=== PATIENT | male | born 1935 | race Caucasian/White ===

== ENCOUNTER → 2016-11-29 | Outpatient (CLI) | payer MEDICARE ==
--- NOTE | 2016-11-29 18:37 | PCVCIMAG ---
EXAM: BILATERAL SUPERFICIAL VENOUS DUPLEX INDICATION: Leg pain and swelling. FINDINGS: Right leg: No thrombus in the common femoral, main femoral, or popliteal veins. These veins are compressible. Right Great Saphenous Vein: At the saphenofemoral junction the diameter is 7.1 mm, in the mid thigh it is 4.3 mm, and in the calf it is 4.4 mm. There is not significant venous insufficiency/reflux throughout. Venous insufficiency/reflux duration is 0.4 seconds. Right Small Saphenous Vein: At the saphenopopliteal junction the diameter is 5.1 mm, and in the calf it is 3.3 mm. There is not significant venous insufficiency/reflux throughout. Venous insufficiency/reflux duration is 0.4 seconds. There is a cranial extension present. Left leg: No thrombus in the common femoral, main femoral, or popliteal veins. These veins are compressible. Left Great Saphenous Vein: At the saphenofemoral junction the diameter is 7.5 mm, in the mid thigh it is 6.0 mm, and in the calf it is 6.6 mm. There is significant venous insufficiency/reflux throughout. Venous insufficiency/reflux duration is 12.0 seconds. Left Small Saphenous Vein: At the saphenopopliteal junction the diameter is 3.2 mm, and in the calf it is 2.8 mm. There is not significant venous insufficiency/reflux throughout. Venous insufficiency/reflux duration is 0.3 seconds. There is a cranial extension present. IMPRESSION: Right Great Saphenous Vein: No significant venous insufficiency/reflux is present as noted above. Right Small Saphenous Vein: No significant venous insufficiency/reflux is present as noted above. Left Great Saphenous Vein: Significant venous insufficiency/reflux is present as noted above. Left Small Saphenous Vein: No significant venous insufficiency/reflux is present as noted above. LOC:[id number]
--- NOTE | 2016-11-29 18:42 | PCVCIMAG ---
EXAM: LEFT LOWER EXTREMITY ARTERIAL DUPLEX INDICATION: Peripheral Arterial Disease. Leg pain. FINDINGS: Left Leg: Satisfactory arterial waveforms throughout the common/profunda/superficial femoral, popliteal, anterior tibial, peroneal, and posterior tibial arteries. No flow limiting stenosis seen. IMPRESSION: No flow limiting stenosis in the left lower extremity. LOC:[id number]
--- NOTE | 2016-11-29 18:44 | PCVCIMAG ---
EXAM: NONINVASIVE ARTERIAL EXAMINATION OF THE LEFT LOWER EXTREMITY WITH PULSE VOLUME RECORDINGS OF THE TOES INDICATION: Peripheral Arterial Disease. Leg pain. FINDINGS: Please see left leg arterial duplex dictation and date which shows no evidence of flow-limiting arterial stenosis. Mild blunting of the first, second, third, and fourth toe arterial waveforms may indicate some digital artery disease. Normal arterial waveforms in the left fifth digit. IMPRESSION: Left first, second, third, and fourth toe mild digital artery disease. No other flow limiting stenosis seen in the left lower extremity. LOC:[id number]
== END | disposition home or self-care (01) ==
LOC: PCVCIMAG 09:33
PROVIDERS: ATTEND Nuclear Medicine Nuclear Cardiology
DX: Z01.818 Encounter for other preprocedural examination (principal); I87.2 Venous insufficiency (chronic) (peripheral); I73.9 Peripheral vascular disease, unspecified; M79.662 Pain in left lower leg
CPT/HCPCS: 93922; 93926; 93970